=== PATIENT | male | born 1990 | race Caucasian/White ===

== ENCOUNTER 2019-06-24 18:48 | Emergency (ER) | payer OTHER ==
[2019-06-24] MEDS ORDERED: Sodium Chloride 0.9% 10 ML Syringe FLUSH PRN (19:01)
[2019-06-24] MEDS ORDERED: Ketorolac 30 MG/ML SDV IVPUSH ONE (19:01)
[2019-06-24] MEDS ORDERED: Ondansetron 4 MG/2 ML SDV IVPUSH ONE (19:01)
[2019-06-24] MEDS ORDERED: Sodium Chloride 0.9% 2.5 ML Syringe FLUSH PRN (19:01)
--- NOTE | 2019-06-24 19:19 | EDM.PDOC ---
ED HPI GENERAL MEDICAL PROBLEM - General Chief Complaint: Abdominal Pain Stated Complaint: ABDOMINAL PAIN Time Seen by Provider: 06/24/19 19:05 Source of Information: Reports: Patient - History of Present Illness INITIAL COMMENTS - FREE TEXT/NARRATIVE: The patient is a 29-year-old male with a history of an appendectomy last year who presents to the ER for abdominal pain. He states that yesterday he had some nausea and vomiting but only once, and today he has had abdominal pain all day. No further nausea and vomiting, no diarrhea, no dysuria urinary frequency , no back pain, no fevers, no chills. He does hurt to take a deep breath in his upper abdomen on the left-hand side, but most of the abdominal pain is actually in the lower abdomen. No shortness of breath, no coughing, no dyspnea exertion. He has not taken anything for pain at home. abdominal Pain Score (Numeric/FACES): 8 - Related Data Allergies Allergy/AdvReac Type Severity Reaction Status Date / Time No Known Allergies Allergy Verified 06/24/19 18:59 Home Meds: Home Meds Doxycycline [Vibramycin] 100 mg PO Q12HR 7 Days #14 tab 06/24/19 [Rx] Past Medical History HEENT History: Reports: None Cardiovascular History: Reports: None Respiratory History: Reports: None Genitourinary History: Reports: None Neurological History: Reports: None Psychiatric History: Reports: None Endocrine/Metabolic History: Reports: None Hematologic History: Reports: None Oncologic (Cancer) History: Reports: None Dermatologic History: Reports: None - Infectious Disease History Infectious Disease History: Reports: Chicken Pox - Past Surgical History Head Surgeries/Procedures: Reports: None GI Surgical History: Reports: Appendectomy Other Musculoskeletal Surgeries/Procedures:: cervical fx/surgery 2009 Social & Family History - Family History Family Medical History: Noncontributory - Tobacco Use Smoking Status *Q: Never Smoker - Recreational Drug Use Recreational Drug Use: No ED ROS GENERAL - Review of Systems Review Of Systems: See Below (Positive for abdominal pain, negative for nausea vomiting diarrhea, negative for dysuria, negative for cough, negative shortness of breath, negative for dyspnea exertion, all other Positives and pertinent negatives as per HPI. All other pertinent systems were reviewed and are negative ) ED EXAM, GI/ABD - Physical Exam Exam: See Below Text/Narrative:: Constitutional: No acute distress, Non-toxic appearance HEENT.: Normocephalic, Atraumatic, PERRL, EOMI, External ears are atraumatic, nares are patent without epistaxis Neck: Normal range of motion, Trachea Midline, No stridor Respiratory.: No respiratory distress, No tachypnea, Lungs Clear to Auscultation bilaterally without wheezes, rales, or rhonchi Cardiovascular.: Regular rate and Rhythm without murmurs, rubs, or gallops, good peripheral perfusion GI: Abdomen soft and nondistended, there is mild lower abdominal tenderness appears to be greatest on the suprapubic region and right, no rebound, no rigidity or guarding, heel tap is negative Genital Urinary: Deferred Musculoskeletal: Good range of motion. All 4 extremities present and atraumatic , no edema Back: Full Range of Motion Skin: Warm, Dry, Color is ethnicity appropriate, No acute rash. Lymphatic: No lymphadenopathy noted Neurological: Alert, Awake and oriented x 3, No focal deficits noted appreciate , GCS 15 Psych: Affect, Judgement, mood normal Course - Vital Signs Text/Narrative:: A standard abdominal pain work-up was initiated even though the patient's pain appears to be mostly localized along the lower portion of his abdomen mostly over the suprapubic region. Urinalysis is consistent with a cystitis. I went and talked with the patient again and he denies that he is sexually active but the patient's brother is in the room and he was just at this facility a few days ago and treated for STDs. Furthermore, as mentioned in my exam the patient has no peritoneal signs, and I believe his exam is consistent with a cystitis. I looked through the [place] [employer] website and the patient is negative for any local narcotic prescriptions but apparently the patient is up here from [place], and I only looked through this state. Given that I suspect that this is a cystitis and nothing surgical or any type of medical emergency such as a pancreatitis, etc. he will be given 1 dose of Campbell 10 mg tablet while he is here but I do not feel at this time that narcotic prescriptions are appropriate. We will collect chlamydia and gonorrhea urine samples, and I will treat him for STDs with Rocephin and Zithromax in the ER, and a prescription for doxycycline. This will ensure compliance for any of the common STDs gonorrhea and chlamydia, and the doxycycline will also cover other urinary pathogen such as E. coli, and Klebsiella. We will also provide him with urology follow-up since he states that he will be here a while for work, and if the patient is truly not sexually active urinary tract infection/especially a cystitis is very unusual in a male of his age. Last Recorded V/S: Last Vital Signs Temp 36.4 C 06/24/19 18:59 Pulse 77 06/24/19 20:41 Resp 16 06/24/19 20:41 BP 117/72 06/24/19 20:41 Pulse Ox 97 06/24/19 20:41 - Orders/Labs/Meds Orders: Active Orders 24 hr Category Date Time Status CHLAMYDIA AND GONORRHEA BY TMA Stat Lab 06/24/19 20:40 Ordered Sodium Chloride 0.9% [Saline Flush] Med 06/24/19 19:01 Active 10 ml FLUSH ASDIRECTED PRN Sodium Chloride 0.9% [Saline Flush] Med 06/24/19 19:01 Active 2.5 ml FLUSH ASDIRECTED PRN Saline Lock Insert [OM.PC] Stat Oth 06/24/19 19:01 Ordered Medication Orders Sodium Chloride (Saline Flush) 10 ml FLUSH ASDIRECTED PRN PRN Reason: Keep Vein Open Sodium Chloride (Saline Flush) 2.5 ml FLUSH ASDIRECTED PRN PRN Reason: Keep Vein Open Labs: Laboratory Tests 06/24/19 06/24/19 06/24/19 Range/Units 19:04 19:15 19:15 WBC 9.11 (4.0-11.0) K/uL RBC 4.90 (4.50-5.90) M/uL Hgb 15.1 (13.0-17.0) g/dL Hct 43.4 (38.0-50.0) % MCV 88.6 (80.0-98.0) fL MCH 30.8 (27.0-32.0) pg MCHC 34.8 (31.0-37.0) g/dL RDW Std Deviation 42.5 (28.0-62.0) fl RDW Coeff of Roberto Carlos 13 (11.0-15.0) % Plt Count 245 (150-400) K/uL MPV 9.60 (7.40-12.00) fL Neut % (Auto) 66.3 (48.0-80.0) % Lymph % (Auto) 24.5 (16.0-40.0) % Barnes % (Auto) 7.5 (0.0-15.0) % Eos % (Auto) 1.5 (0.0-7.0) % Baso % (Auto) 0.2 (0.0-1.5) % Neut # (Auto) 6.0 H (1.4-5.7) K/uL Lymph # (Auto) 2.2 (0.6-2.4) K/uL Barnes # (Auto) 0.7 (0.0-0.8) K/uL Eos # (Auto) 0.1 (0.0-0.7) K/uL Baso # (Auto) 0.0 (0.0-0.1) K/uL Nucleated RBC % 0.0 /100WBC Nucleated RBCs # 0 K/uL Sodium 144 (136-148) mmol/L Potassium 3.8 (3.5-5.1) mmol/L Chloride 108 H (98-107) mmol/L Carbon Dioxide 24.3 (21.0-32.0) mmol/L BUN 17 (7.0-18.0) mg/dL Creatinine 0.9 (0.8-1.3) mg/dL Est Cr Clr Drug Dosing 135.63 mL/min Estimated GFR (MDRD) > 60.0 ml/min Glucose 108 H (74-106) mg/dL Calcium 9.2 (8.5-10.1) mg/dL Total Bilirubin 0.3 (0.2-1.0) mg/dL AST 12 L (15-37) IU/L ALT 25 (14-63) IU/L Alkaline Phosphatase 87 (46-116) U/L Total Protein 7.7 (6.4-8.2) g/dL Albumin 3.9 (3.4-5.0) g/dL Globulin 3.8 (2.6-4.0) g/dL Albumin/Globulin Ratio 1.0 (0.9-1.6) Lipase 82 (73-393) U/L Urine Color YELLOW Urine Appearance SLT CLOUDY Urine pH 6.0 (5.0-8.0) Ur Specific [place] >= 1.030 (1.001-1.035) Urine Protein NEGATIVE (NEGATIVE) mg/dL Urine Glucose (UA) NEGATIVE (NEGATIVE) mg/dL Urine Ketones NEGATIVE (NEGATIVE) mg/dL Urine Occult Blood TRACE-INTACT H (NEGATIVE) Urine Nitrite NEGATIVE (NEGATIVE) Urine Bilirubin NEGATIVE (NEGATIVE) Urine Urobilinogen 0.2 (<2.0) EU/dL Ur Leukocyte Esterase SMALL H (NEGATIVE) Urine RBC 1-2 (0-2/HPF) Urine WBC 40-70 (0-5/HPF) Ur Epithelial Cells OCCASIONAL (NONE-FEW) Amorphous Sediment FEW (NEGATIVE) Urine Bacteria FEW (NEGATIVE) Urine Mucus FEW (NONE-MOD) Meds: Medications Generic Name Dose Route Start Last Admin Trade Name Freq PRN Reason Stop Dose Admin Sodium Chloride 10 ml 06/24/19 19:01 Saline Flush FLUSH ASDIRECTED PRN Keep Vein Open Sodium Chloride 2.5 ml 06/24/19 19:01 Saline Flush FLUSH ASDIRECTED PRN Keep Vein Open Discontinued Medications Generic Name Dose Route Start Last Admin Trade Name Freq PRN Reason Stop Dose Admin Hydrocodone Bitart/Acetaminophen 1 tab 06/24/19 20:09 Campbell 325-10 Mg PO 06/24/19 20:10 ONETIME ONE Azithromycin 1,000 mg 06/24/19 20:11 Zithromax PO 06/24/19 20:12 Q24H ONE Ceftriaxone Sodium 250 mg/ 1 mls @ 1 mls/sec 06/24/19 20:09 Lidocaine HCl IM 06/24/19 20:10 ONETIME ONE Ketorolac Tromethamine 30 mg 06/24/19 19:01 06/24/19 19:26 Toradol IVPUSH 06/24/19 19:02 30 mg ONETIME ONE Administration Ondansetron HCl 4 mg 06/24/19 19:01 06/24/19 19:26 Zofran IVPUSH 06/24/19 19:02 4 mg ONETIME ONE Administration Departure - Departure Time of Disposition: 20:34 Disposition: Home, Self-Care 01 Condition: Good Clinical Impression: Cystitis - Discharge Information Prescriptions: Doxycycline [Vibramycin] 100 mg PO Q12HR 7 Days #14 tab Instructions: Urinary Tract Infection, Adult, [id number] Referrals: PCP,None [Primary Care Provider] - Rosie Arshad MD [Physician] - Forms: ED Department Discharge Sepsis Event Note - Evaluation Sepsis Screening Result: No Definite Risk - Focused Exam Vital Signs: Vital Signs Temp Pulse Resp BP Pulse Ox 06/24/19 20:41 77 16 117/72 97 06/24/19 18:59 36.4 C 81 18 121/65 98 Date Exam was Performed: 06/24/19 Time Exam was Performed: 20:41 - My Orders Last 24 Hours: My Active Orders 06/24/19 19:01 Sodium Chloride 0.9% [Saline Flush] 10 ml FLUSH ASDIRECTED PRN Sodium Chloride 0.9% [Saline Flush] 2.5 ml FLUSH ASDIRECTED PRN Saline Lock Insert [OM.PC] Stat 06/24/19 20:40 CHLAMYDIA AND GONORRHEA BY TMA Stat - Assessment/Plan Last 24 Hours: My Active Orders 06/24/19 19:01 Sodium Chloride 0.9% [Saline Flush] 10 ml FLUSH ASDIRECTED PRN Sodium Chloride 0.9% [Saline Flush] 2.5 ml FLUSH ASDIRECTED PRN Saline Lock Insert [OM.PC] Stat 06/24/19 20:40 CHLAMYDIA AND GONORRHEA BY TMA Stat
[2019-06-24] MEDS ORDERED: cefTRIAXone 250 MG in Lidocaine 1% 1 ML IM ONE (20:09)
[2019-06-24] MEDS ORDERED: Acetaminophen/HYDROcodone 325-10 MG Tab PO ONE (20:09)
[2019-06-24] MEDS ORDERED: Azithromycin 250 MG Tab PO ONE (20:11)
[2019-06-24 20:17] LABS: BLOOD UREA NITROGEN,BUN 17 mg/dL (7.0-18.0); CARBON DIOXIDE,CO2 24.3 mmol/L (21.0-32.0); CHLORIDE,CL 108 mmol/L (98-107); GLUCOSE RANDOM 108 mg/dL (74-106); LIPASE 82 U/L (73-393); POTASSIUM,K 3.8 mmol/L (3.5-5.1); SODIUM,NA 144 mmol/L (136-148)
[2019-06-26 12:07] LABS: C.TRACHOMATIS BY TMA Negative (Negative); N.GONORRHOEAE BY TMA Positive (Negative)
== END 2019-06-24 21:01 | disposition home or self-care (01) ==
LOC: MW.ED 18:48
DX: N30.90 Cystitis, unspecified without hematuria (principal); Z90.89 Acquired absence of other organs
CPT/HCPCS: 80053; 81001; 83690; 85025; 87491; 87591; 96372; 96374; 96375; 99284; A9270; J0696; J1885; J2001; J2405; 99283

== ENCOUNTER 2019-07-13 19:45 | Emergency (ER) | payer OTHER ==
--- NOTE | 2019-07-13 20:21 | CT ---
Head CT Technique: Multiple axial sections through the brain were obtained. Intravenous contrast was not utilized. Comparison: No prior intracranial imaging is available. Findings: Ventricles along with basal cisterns and sulci over the convexities are within normal limits for the patient's age. No abnormal parenchymal densities are seen. No evidence of intracranial hemorrhage. No midline shift or mass-effect is appreciated. Bone window settings were reviewed. Visualized mastoid sinuses and visualized paranasal sinuses show nothing acute. No acute calvarial abnormality is appreciated. Impression: 1. Nothing acute is appreciated on noncontrast head CT exam. Diagnostic code #1 This report was dictated in [place] Standard Time
--- NOTE | 2019-07-13 20:32 | CT ---
CT cervical spine Technique: Multiple axial sections were obtained from above C1 inferiorly to the bottom of T4. Reconstructed sagittal and coronal images were reviewed. Comparison: No prior intracranial imaging is available. Findings: Vertebral body heights are maintained. Extensive surgery is seen with anterior plate and screws at C3-C7. Disc spaces and vertebral body heights within the lower and upper portions of the cervical spine are maintained. Posterior fixation is also seen at C3-4. Posterior laminectomy noted at C3-4. No acute fracture is appreciated. No abnormal subluxation is seen. Neural foramina appear to be fairly well patent. No central canal stenosis is appreciated. Impression: 1. Extensive surgery. 2. Nothing acute is appreciated on CT study of the cervical spine. Diagnostic code #1 This report was dictated in [place] Standard Time
[2019-07-13] MEDS ORDERED: Ketorolac 60 MG/2 ML SDV IM ONE (20:46)
[2019-07-13] MEDS ORDERED: oxyCODONE ER 10 MG TAB.ER PO ONE (20:46)
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
== END 2019-07-13 21:15 | disposition home or self-care (01) ==
LOC: MW.ED 19:45
DX: S16.1XXA Strain of muscle, fascia and tendon at neck level, initial encounter (principal); W20.8XXA Other cause of strike by thrown, projected or falling object, initial encounter
CPT/HCPCS: 70450; 72125; 96372; 99283; A9270; J1885